=== PATIENT | female | born 1960 | race American Indian/Alaskan Native ===

== ENCOUNTER 2018-03-17 09:30 | Emergency (ER) | payer OTHER ==
--- NOTE | 2018-03-17 10:59 | Emergency Department Report ---
ED General Adult HPI - General Chief complaint: Weakness Stated complaint: RIGHT SIDE PAIN/WEAKNESS Time Seen by Provider: 03/17/18 09:56 Source: patient Mode of arrival: Stretcher Limitations: No Limitations - History of Present Illness Initial comments: 57-year-old female with a history of scoliosis presents with a complaint of right-sided pain and numbness to the upper and lower extremity for the past 2 days. She denies any slurred speech or focal weakness. Patient states that her pain initially started in her right hand and migrated upward to her shoulder region. She denies any chest pain or shortness of breath. Patient denies any neck pain. He states that her leg has been numb since yesterday. Patient denies any history of DVT or PE. Patient is able to ambulate. Patient states that she had a similar episode some years ago when her daughter where she had weakness and numbness on her right upper and lower extremity but did not present to an emergency department. Severity scale (0 -10): 0 - Related Data Allergies Allergy/AdvReac Type Severity Reaction Status Date / Time No Known Allergies Allergy Unverified 03/17/18 11:40 ED Review of Systems ROS: Stated complaint: RIGHT SIDE PAIN/WEAKNESS Other details as noted in HPI Constitutional: weakness. denies: chills, fever Eyes: denies: eye pain, eye discharge, vision change ENT: denies: ear pain, throat pain Respiratory: denies: cough, shortness of breath, wheezing Cardiovascular: denies: chest pain, palpitations Endocrine: no symptoms reported Gastrointestinal: denies: abdominal pain, nausea, diarrhea Genitourinary: denies: urgency, dysuria, discharge Musculoskeletal: denies: back pain, joint swelling, arthralgia Skin: denies: rash, lesions Neurological: numbness. denies: headache, weakness, paresthesias Psychiatric: denies: anxiety, depression Hematological/Lymphatic: denies: easy bleeding, easy bruising ED Past Medical Hx - Past Medical History Previous Medical History?: Yes Additional medical history: scoliosis - Social History Smoking Status: Never Smoker Substance Use Type: None ED Physical Exam - General Limitations: No Limitations General appearance: alert, in no apparent distress, other (comfortable) - Head Head exam: Present: atraumatic, normocephalic - Eye Eye exam: Present: normal appearance - ENT ENT exam: Present: mucous membranes moist - Neck Neck exam: Present: normal inspection - Respiratory Respiratory exam: Present: normal lung sounds bilaterally. Absent: respiratory distress - Cardiovascular Cardiovascular Exam: Present: regular rate, normal rhythm. Absent: systolic murmur, diastolic murmur, rubs, gallop - GI/Abdominal GI/Abdominal exam: Present: soft, normal bowel sounds - Extremities Exam Extremities exam: Present: normal inspection - Back Exam Back exam: Present: normal inspection - Neurological Exam Neurological exam: Present: alert, oriented X3, CN II-XII intact, abnormal gait (patient ambulates with assistance of nurse and appears to favor her left side) , other (finger to nose intact; patient has 5/5 strength in upper extremities and left lower extremity; in right lower extremity, patient struggles to keep her leg up for 4 seconds and uses both hands on bed to assist with this activity ) - Psychiatric Psychiatric exam: Present: normal affect, normal mood - Skin Skin exam: Present: warm, dry, intact, normal color. Absent: rash ED Course Vital Signs 03/17/18 03/17/18 03/17/18 09:44 09:45 09:46 Temperature 98.8 F Pulse Rate 64 74 68 Respiratory 10 L 13 18 Rate Blood Pressure 125/82 125/82 Blood Pressure 125/82 [Left] O2 Sat by Pulse 98 Oximetry 03/17/18 03/17/18 03/17/18 10:00 10:15 10:30 Temperature Pulse Rate 62 62 69 Respiratory 11 L 12 19 Rate Blood Pressure 126/75 125/82 124/65 Blood Pressure [Left] O2 Sat by Pulse Oximetry 03/17/18 03/17/18 03/17/18 10:45 11:00 12:03 Temperature Pulse Rate 62 65 70 Respiratory 11 L 15 12 Rate Blood Pressure 124/65 120/67 117/77 Blood Pressure [Left] O2 Sat by Pulse Oximetry 03/17/18 03/17/18 03/17/18 12:16 12:30 12:45 Temperature Pulse Rate 62 66 63 Respiratory 14 10 L 14 Rate Blood Pressure 117/77 138/75 138/75 Blood Pressure [Left] O2 Sat by Pulse Oximetry 03/17/18 03/17/18 03/17/18 13:00 13:15 13:31 Temperature Pulse Rate 63 70 64 Respiratory 16 13 11 L Rate Blood Pressure 123/71 138/75 138/75 Blood Pressure [Left] O2 Sat by Pulse Oximetry 03/17/18 13:45 Temperature Pulse Rate 69 Respiratory 13 Rate Blood Pressure 123/71 Blood Pressure [Left] O2 Sat by Pulse Oximetry ED Medical Decision Making - Lab Data Result diagrams: 03/17/18 11:15 03/17/18 11:15 - Medical Decision Making I consulted the teleneurologist, Dr. Haji, regarding this patient. Dr. Haji states that the patient will require admission and likely PT intervention as well as MRI to further investigate this weakness that she has primarily her right lower extremity patient has a CT which shows no acute pathology. Case discussed with hospitalist at [place] who accepted the patient for transfer to [facility]. - Differential Diagnosis STEMI; NSTEMI; electrolyte abnormality; intracranial bleed Critical care attestation.: If time is entered above; I have spent that time in minutes in the direct care of this critically ill patient, excluding procedure time. ED Disposition Clinical Impression: Weakness, Gait abnormality Disposition: DC/TX-70 ANOTHER TYPE HLTHCARE Is pt being admited?: No Does the pt Need Aspirin: No Condition: Stable Referrals: PRIMARY CARE, [Primary Care Provider] - 3-5 Days Time of Disposition: 12:38
--- NOTE | 2018-03-17 11:30 | XRay Report ---
AP CHEST: HISTORY: Weakness AP view of the chest demonstrates a normal mediastinal and cardiac contour with clear lungs and normal bony and soft tissue structures. IMPRESSION: Unremarkable AP chest.
[2018-03-17 11:38] LABS: Basophils % (Auto) 0.2 % (0.0-1.8); Eosinophils # (Auto) 0.1 K/mm3 (0.0-0.4); Hematocrit 40.6 % (30.3-42.9); Hemoglobin 13.6 gm/dl (10.1-14.3); Lymphocytes # (Auto) 1.7 K/mm3 (1.2-5.4); Lymphocytes % (Auto) 25.2 % (13.4-35.0); Mean Corpuscular HGB Conc 33 % (30-34); Mean Corpuscular Hemoglobin 29 pg (28-32); Mean Corpuscular Volume 86 fl (79-97); Monocytes # (Auto) 0.5 K/mm3 (0.0-0.8); Monocytes % (Auto) 7.4 % (0.0-7.3); Platelet Count 269 K/mm3 (140-440); Red Blood Count 4.73 M/mm3 (3.65-5.03); Red Cell Distribution Width 14.2 % (13.2-15.2)
[2018-03-17 12:01] LABS: Alanine Aminotransferase 19 units/L (7-56); Albumin 4.2 g/dL (3.9-5); BUN/Creatinine Ratio 13; Blood Urea Nitrogen 12 mg/dL (7-17); Calcium 9.2 mg/dL (8.4-10.2); Hemolysis Index 10
--- NOTE | 2018-03-17 12:07 | Cat Scan Report ---
CT HEAD WITHOUT CONTRAST: HISTORY: . TECHNIQUE: Sequential 2.5mm CT images. COMPARISON: none. FINDINGS: Cerebral Parenchyma: Within normal limits. Cerebellum: Within normal limits. Brainstem: Within normal limits. Ventricles: Normal. Sella: Normal. Extra-axial spaces: Normal. Basal Cisterns: Normal. Intracranial Hemorrhage: None. Midline Shift: None. Calvarium: Normal. Sinuses: Normal. Mastoid Air Cells: Normal. Visualized Orbits: Normal. IMPRESSION: Cranial CT scan within normal limits.
[2018-03-17 12:12] LABS: Bilirubin,Urine NEG (Negative); Blood,Urine NEG (Negative); Color,Urine Yellow (Yellow); Mucus,Urine FEW /HPF; Protein,Urine <15 mg/dL mg/dL (Negative); Urobilinogen,Urine < 2.0 mg/dL (<2.0)
[2018-03-17 18:09] VITALS: BP 135/71
== END 2018-03-17 19:05 | disposition other institution (70) ==
LOC: ED 09:30
DX: R53.1 Weakness (principal); R26.9 Unspecified abnormalities of gait and mobility; M79.18 Myalgia, other site
CPT/HCPCS: 36415; 70450; 71045; 80053; 81001; 82550; 83735; 84484; 85025

== ENCOUNTER 2019-04-03 08:46 | Emergency (ER) | payer OTHER ==
[2019-04-03 09:02] VITALS: BP 136/72
[2019-04-03] MEDS ORDERED: oxyCODONE /ACETAMINOPHEN 5-325MG TAB PO ONE (09:32)
[2019-04-03] MEDS ORDERED: CYCLOBENZAPRINE 10 MG TAB PO ONE (09:32)
[2019-04-03] MEDS ORDERED: predniSONE 20 MG TAB PO ONE (09:32)
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
[2019-04-03] MEDS ORDERED: ONDANSETRON 4 MG ODT TAB ONE (10:20)
[2019-04-03] MEDS ORDERED: ONDANSETRON 4 MG ODT TAB PO ONE (10:25)
== END 2019-04-03 14:02 | disposition home or self-care (01) ==
LOC: ED 08:46
DX: M79.18 Myalgia, other site (principal); V89.2XXA Person injured in unspecified motor-vehicle accident, traffic, initial encounter; Y93.89 Activity, other specified; Y92.89 Other specified places as the place of occurrence of the external cause; Y99.8 Other external cause status
CPT/HCPCS: 99282; J7512; Q0162